=== PATIENT | male | born 1990 | race American Indian/Alaskan Native ===

== ENCOUNTER 2019-02-22 12:59 | Emergency (ER) | payer MEDICAID ==
--- NOTE | 2019-02-22 13:17 | Event Note ---
ED Screening Note Date of service: 02/22/19 Time: 13:13 ED Screening Note: This is a 28 y.o. M. that presents to the ER for elevated blood pressure and headache x 3 days. PMH migraines and HTN Patient currently not on medication. This initial assessment/diagnostic orders/clinical plan/treatment(s) is/are subject to change based on patients health status, clinical progression and re- assessment by fellow clinical providers in the ED. Further treatment and workup at subsequent clinical providers discretion. Patient/guardian urged not to elope from the ED as their condition may be serious if not clinically assessed and managed. Initial orders include:
--- NOTE | 2019-02-22 14:21 | Emergency Department Report ---
ED Headache HPI - General Chief Complaint: High BP Stated Complaint: HBP/HEADACHE Time Seen by Provider: 02/22/19 13:13 Source: patient Exam Limitations: no limitations - History of Present Illness Initial Comments: Mr. Reece is a 28-year-old male with history of seasonal allergies presents with 3 days of bitemporal headache. Has a history of possible sinus headache. His mother checked the pressure is home. Blood pressure was elevated. He was told by 2 physicians that he's had elevated blood pressure readings on previous occasion. 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 However primary care physician has not yes. Blood pressure medication. Mild headache. Denies visual changes, paresthesias, chest pain. Timing/Duration: episodic, other (3 days) Quality: mild Head Injury Location: temporal Recent Head Trauma: frequent headaches (related to allergies) Associated Symptoms: denies symptoms Allergies/Adverse Reactions: Allergies No Known Allergies Allergy (Verified 02/22/19 13:13) Home Medications: Ambulatory Orders Cetirizine HCl [ZyrTEC] 10 mg PO DAILY #30 tab.chew 11/19/15 predniSONE [Deltasone] 50 mg PO QDAY #5 tab 02/16/16 ED Review of Systems ROS: Stated complaint: HBP/HEADACHE Other details as noted in HPI Comment: All other systems reviewed and negative Constitutional: denies: fever, malaise Cardiovascular: denies: chest pain Gastrointestinal: denies: abdominal pain ED Past Medical Hx - Past Medical History Additional medical history: Seasonal alleriges - Surgical History Past Surgical History?: No - Social History Smoking Status: Never Smoker Substance Use Type: None - Medications Home Medications: Home Medications Medication Instructions Recorded Confirmed Last Taken Type Cetirizine HCl [ZyrTEC] 10 mg PO DAILY #30 tab.chew 11/19/15 Unknown Rx predniSONE [Deltasone] 50 mg PO QDAY #5 tab 02/16/16 Unknown Rx ED Physical Exam - General Limitations: No Limitations General appearance: alert, in no apparent distress, other (smiling, jovial, pleasant, appears comfortable) - Head Head exam: Present: atraumatic, normocephalic - Eye Eye exam: Present: normal appearance - ENT ENT exam: Present: mucous membranes moist - Neck Neck exam: Present: normal inspection, full ROM - Respiratory Respiratory exam: Present: normal lung sounds bilaterally. Absent: respiratory distress, wheezes, rales, rhonchi - Cardiovascular Cardiovascular Exam: Present: regular rate, normal rhythm, normal heart sounds. Absent: systolic murmur, diastolic murmur, rubs, gallop - GI/Abdominal GI/Abdominal exam: Present: soft, normal bowel sounds. Absent: distended, tenderness, guarding, rebound - Rectal Rectal exam: Present: deferred - Extremities Exam Extremities exam: Present: normal inspection - Back Exam Back exam: Present: normal inspection - Neurological Exam Neurological exam: Present: alert, oriented X3 - Psychiatric Psychiatric exam: Present: normal affect, normal mood - Skin Skin exam: Present: warm, dry, intact, normal color. Absent: rash ED Course Vital Signs 02/22/19 13:13 Temperature 97.6 F Pulse Rate 104 H Respiratory 16 Rate Blood Pressure 156/112 O2 Sat by Pulse 98 Oximetry ED Medical Decision Making - Medical Decision Making Mr. Reece is a 28-year-old male presents with bitemporal headache suggestive of tension headache. Elevated blood pressure reading will need to be evaluated and treated by his primary care physician. No indication of acute emergent condition such as intracranial hemorrhage, CVA. No signs or symptoms of end organ damage related to hypertension. Critical care attestation.: If time is entered above; I have spent that time in minutes in the direct care of this critically ill patient, excluding procedure time. ED Disposition Clinical Impression: Tension headache, Elevated blood pressure reading Disposition: DC-[id number] TO HOME OR SELFCARE Is pt being admited?: No Does the pt Need Aspirin: No Condition: Stable Instructions: Tension Headache (ED), Hypertension (ED) Additional Instructions: Her blood pressure today is 156/112. Please your primary physician this coming week. Please take this paperwork with you.
[2019-02-22 15:11] VITALS: BP 148/102
== END 2019-02-22 15:10 | disposition home or self-care (01) ==
LOC: ED 12:59
DX: G44.209 Tension-type headache, unspecified, not intractable (principal); R03.0 Elevated blood-pressure reading, without diagnosis of hypertension
CPT/HCPCS: 99282

== ENCOUNTER 2020-03-13 21:18 | Emergency (ER) | payer MEDICAID ==
--- NOTE | 2020-03-13 22:45 | XRay Report ---
LEFT THUMB 3 VIEWS INDICATION / CLINICAL INFORMATION: left thumb pain. COMPARISON: None available. FINDINGS: No fracture or other significant abnormality. Signer Name: Denzel Breen MD Signed: 03/13/2020 10:40 PM Workstation Name: [id number]
--- NOTE | 2020-03-14 01:25 | Emergency Department Report ---
Upper Extremity - HPI Chief Complaint: Extremity Injury, Upper Stated Complaint: CLOSED LEFT HAND IN DOOR Upper Extremity: Left Thumb (pain and mild swelling) Occurred When: Today Mechanism: Hit with Object, Crush, Other (car door closed onto the left thumb) Severity: moderate Symptoms: Yes Pain with Movement, Yes Swelling (mild), No Deformity, No Limited Range of Movement, No Numbness, No Weakness, No Bruising/Ecchymosis, No Laceration or Abrasion Other History: Patient is a 29-year-old -[place] male with no past medical history who presents to the ED with complaint of acute onset left thumb pain and mild swelling after a car door accidentally closed onto the left thumb about 3 hours ago. Patient states that the pain was initially severe but has since improved significantly such that he is able to perform active range of motion of the left thumb with no difficulties. Patient denies numbness and tingling or weakness of left hand or left arm, dizziness, syncope, chest pain, shortness of breath, fall, nausea and vomiting. ED Review of Systems ROS: Stated complaint: CLOSED LEFT HAND IN DOOR Other details as noted in HPI Constitutional: denies: chills, fever Eyes: denies: eye pain, eye discharge, vision change ENT: denies: ear pain, throat pain Respiratory: denies: cough, shortness of breath, wheezing Cardiovascular: denies: chest pain, palpitations Endocrine: no symptoms reported Gastrointestinal: denies: abdominal pain, nausea, diarrhea Genitourinary: denies: urgency, dysuria Musculoskeletal: joint swelling (Left thumb mild swelling), arthralgia (Left thumb pain and mild swelling). denies: back pain Skin: denies: rash, lesions Neurological: denies: headache, weakness, paresthesias Psychiatric: denies: anxiety, depression Hematological/Lymphatic: denies: easy bleeding, easy bruising ED Past Medical Hx - Past Medical History Previous Medical History?: Yes Additional medical history: Seasonal alleriges. Cardiomyopathy - Surgical History Past Surgical History?: No - Social History Smoking Status: Never Smoker - Medications Home Medications: Home Medications Medication Instructions Recorded Confirmed Last Taken Type Cetirizine HCl [ZyrTEC] 10 mg PO DAILY #30 tab.chew 11/19/15 Unknown Rx predniSONE [Deltasone] 50 mg PO QDAY #5 tab 02/16/16 Unknown Rx Ibuprofen [Motrin] 800 mg PO Q8HR PRN #20 tablet 03/14/20 Unknown Rx Upper Extremity Exam - Exam General: Vital signs noted. No distress. Alert and acting appropriately. Head and Torso: No HEENT Abnormality, No Neck Tenderness, No Chest/Lungs Abnormality, No Abdominal Tenderness, No Back Tenderness Shoulder Exam: Yes Normal Range of Motion in Shoulder, No Shoulder Tenderness, No Clavicle Tenderness, No Shoulder Deformity, No AC Joint Tenderness Arm Exam: No Arm/Humerus Tenderness, No Arm Deformity Elbow: Yes Normal Range of Motion in Elbow, No Elbow Tenderness, No Elbow Deformity Forearm: No Forearm Tenderness, No Forearm Deformity, No Pain with Pronation, No Pain with Supination Wrist: Yes Normal ROM in Wrist, No Wrist Tenderness, No Wrist Deformity, No Snuffbox Tenderness, No Pain with Axial Thumb Compression Hand: Yes Digit Tenderness (Mild left thumb tenderness), Yes Normal ROM in Digit(s), No Hand Tenderness, No Hand Deformity, No Digit(s) Deformity, No Tendon Dysfunction CMS Exam: Yes Normal Distal Pulses, Yes Normal Capillary Refill, Yes Normal Distal Sensation, No Broken Skin ED Course Vital Signs 03/13/20 03/13/20 21:52 22:03 Temperature 97.8 F Pulse Rate 74 Respiratory 16 16 Rate Blood Pressure 150/97 O2 Sat by Pulse 98 Oximetry ED Medical Decision Making - Radiology Data Radiology results: report reviewed, image [place] [address] XRay Report Signed Patient: BORIS MONROE MR#: [id number] : 1990 Acct:[id number] Age/Sex: 29 / M ADM Date: 03/13/20 Loc: ED Attending Dr: Ordering Physician: ED MD FRANKO Date of Service: 03/13/20 Procedure(s): XR finger(s) 2+V LT Accession Number(s): [id number] cc: ED MD FRANKO Fluoro Time In Minutes: LEFT THUMB 3 VIEWS INDICATION / CLINICAL INFORMATION: left thumb pain. COMPARISON: None available. FINDINGS: No fracture or other significant abnormality. Signer Name: Denzel Breen MD Signed: 03/13/2020 10:40 PM Workstation Name: [id number] Transcribed By: TM Dictated By: Denzel Breen MD Electronically Authenticated By: Denzel Breen MD Signed Date/Time: 03/13/202239 DD/ 38 TD/TT: - Medical Decision Making This is a 29-year-old -[place] male with no past medical history who presents to the ED with complaint of acute onset left thumb pain and mild swell ing after a car door accidentally closed onto the left thumb about 3 hours ago. Patient states that the pain was initially severe but has since improved significantly such that he is able to perform active range of motion of the left thumb with no difficulties. In the ED, patient is alert and oriented x3 and is not in distress. Left hand x-ray showed no acute fractures or subluxations of the left arm. Patient will discharge home on medications and advised to follow- up with his primary care physician in 5 to 7 days for reevaluation or return to the ED immediately if symptoms get worse. - Differential Diagnosis Hand sprain; thumb sprain; thumb fracture; muscle strain, hand contusion Critical care attestation.: If time is entered above; I have spent that time in minutes in the direct care of this critically ill patient, excluding procedure time. ED Disposition Clinical Impression: Contusion of left hand including fingers Qualifiers: Encounter type: initial encounter Qualified Code(s): S60.222A - Contusion of left hand, initial encounter; S60.00XA - Contusion of unspecified finger without damage to nail, initial encounter Sprain of left thumb Qualifiers: Encounter type: initial encounter Sprain of finger site: unspecified site Qualified Code(s): S63.602A - Unspecified sprain of left thumb, initial encounter Disposition: TO HOME OR SELFCARE Is pt being admited?: No Does the pt Need Aspirin: No Condition: Stable Instructions: Finger Sprain (ED), Hand Sprain (ED) Additional Instructions: The x-ray of left hand shows no acute fractures or subluxations. Therefore take medication as needed for pain, follow-up with your primary care physician in 5 to 7 days for reevaluation. Return to the ED immediately if symptoms get worse. Prescriptions: Ibuprofen [Motrin] 800 mg PO Q8HR PRN #20 tablet PRN Reason: Pain , Severe (7-10) Referrals: [facility] [Provider Group] - 3-5 Days Time of Disposition: 01:26 Print Language: VINCENTIAN
[2020-03-14 01:35] VITALS: BP 143/103
== END 2020-03-14 01:37 | disposition home or self-care (01) ==
LOC: ED 21:18
DX: S63.602A Unspecified sprain of left thumb, initial encounter (principal); S60.222A Contusion of left hand, initial encounter; Z79.1 Long term (current) use of non-steroidal anti-inflammatories (NSAID); Z79.899 Other long term (current) drug therapy; W22.8XXA Striking against or struck by other objects, initial encounter; Y93.89 Activity, other specified; Y92.89 Other specified places as the place of occurrence of the external cause; Y99.8 Other external cause status